=== PATIENT | female | born 1935 | race Caucasian/White ===

== ENCOUNTER 2019-06-14 15:48 | Outpatient (CLI) | payer MEDICARE, OTHER ==
--- NOTE | 2019-06-15 07:26 | Diagnostic Imaging Report ---
VIN RAMIRES [facility] [address] [facility] [address] [address] Report Submission Date: Jun 14, 2019 4:37:10 PM CDT Patient Study Name: PIERRE LATHAM Date: Jun 14, 2019 3:54:10 PM CDT Modality Type: US Gender: F Description: : 37 Institution: [facility] Physician: VIN RAMIRES Examination: Ultrasound left vein History: LT LEG PAIN AND SWELLING Findings: Sonographic evaluation of the left lower extremity venous system from the groin to the popliteal fossa inclusive. Normal compressibility. No luminal filling defect. Normal waveforms and response to augmentation. No popliteal region fluid collection. Calf vasculature not well visualized. Impression: No evidence for deep venous thrombosis. Electronically signed on Jun 14, 2019 4:37:10 PM CDT by: Mani MONTERO
== END 2019-06-14 15:50 ==
LOC: RAD 15:48
PROVIDERS: ATTEND Nurse Practitioner Family
DX: M79.605 Pain in left leg (principal)
CPT/HCPCS: 93971

== ENCOUNTER 2019-09-04 08:54 | Outpatient (CLI) | payer MEDICARE, OTHER ==
--- NOTE | 2019-09-19 09:52 | Diagnostic Imaging Report ---
EDUARDO JOHNSON [facility] [address] [facility] [address] Report Submission Date: Sep 04, 2019 10:44:17 AM CDT Patient Study Name: PIERRE LATHAM Date: Sep 04, 2019 9:01:46 AM CDT Modality Type: US Gender: F Description: ABDOMEN COMPLETE : 37 Institution: [facility] Physician: EDUARDO JOHNSON Ultrasound of abdomen complete Indication:right upper quadrant abdominal pain. Findings: Ultrasound shows the liver and visualized pancreas be unremarkable. The gallbladder is absent. There is no intrahepatic duct dilatation. Common bile duct measures 0.47 cm. The spleen measures 12.01 cm. The right kidney measures 11.75 x 5.01 x 5.08 cm and the left kidney measures 12.25 x 5.66 x 4.57 cm. There is no hydronephrosis. The aorta and inferior vena cava are unremarkable. Impression: status post cholecystectomy. Otherwise unremarkable. Electronically signed on Sep 04, 2019 10:44:17 AM CDT by: Matt MONTERO
== END 2019-09-04 09:30 ==
LOC: RAD 08:54
PROVIDERS: ATTEND Nurse Practitioner Family
DX: K43.9 Ventral hernia without obstruction or gangrene (principal); R10.11 Right upper quadrant pain
CPT/HCPCS: 76700

== ENCOUNTER 2019-09-14 09:54 | Outpatient (CLI) | payer MEDICARE, OTHER ==
--- NOTE | 2019-09-14 16:56 | Diagnostic Imaging Report ---
EDUARDO JOHNSON [facility] [address] [facility].[address] [address] Report Submission Date: Sep 14, 2019 11:21:43 AM CDT Patient Study Name: PIERRE LATHAM Date: Sep 14, 2019 10:29:57 AM CDT Modality Type: CT\SR Gender: F Description: CT ABD PELVIS W/ CON : 37 Institution: [facility] Physician: EDUARDO JOHNSON CT abdomen and pelvis with contrast Date of study:09/14/19 CLINICAL HISTORY: CT A/P W/ CONTRAST, MONOCYTOSIS, HIGH GLOBULIN LEVEL, PT STATES CRAMPING, NAUSEA/DIARRHEA AND WEIGHT LOSS FOR ABOUT 2 MONTHS. PT STATES HX OF GALLBLADDER REMOVAL AND HYSTERECTOMY (Hx) / ITS.REASON MONOCYTOSIS, HIGH GLOBULIN LEVEL Note time : 09/14/2019 11:04:52 AM User : Helena Molly CT A/P W/ CONTRAST, MONOCYTOSIS, HIGH GLOBULIN LEVEL, PT STATES CRAMPING, NAUSEA/DIARRHEA AND WEIGHT LOSS FOR ABOUT 2 MONTHS. PT STATES HX OF GALLBLADDER REMOVAL AND HYSTERECTOMY (DICOM Hx) (DICOM Hx) TECHNIQUE: 5 mm contiguous axial images of the abdomen and pelvis with IV contrast. With; 90ML @ 2.0ML/S FINDINGS: CT abdomen: Bilateral lower lobe atelectasis is present. There is diffuse fatty infiltration to the liver. Surgical clips overlie the gallbladder fossa. The spleen, pancreas, adrenal glands,and kidneys show no acute abnormalities. There is a cyst in the upper pole of the left kidney measuring 1.3 cm. There is no bowel obstruction,free air or free fluid. There is a midline ventral hernia on image 41 containing fat. The defect measures 2.[address] pelvis: Sigmoid colon diverticulosis is present. No pericolonic mesenteric inflammatory changes to suggest acute diverticulitis are present. There is no free air or free fluid. No bowel obstruction is seen. The urinary bladder is partially distended. There aremultilevel degenerative changes of the spine. Impression: Fatty infiltration of the liver Sigmoid diverticulosis Left renal cyst Ventral hernia containing fat Electronically signed on Sep 14, 2019 11:21:43 AM CDT by: Matt MONTERO
== END 2019-09-14 10:00 ==
LOC: RAD 09:54
PROVIDERS: ATTEND Nurse Practitioner Family
DX: D72.821 Monocytosis (symptomatic) (principal)
CPT/HCPCS: 74177; Q9967